=== PATIENT | male | born 1970 | race Caucasian/White ===

== ENCOUNTER 2018-03-19 12:06 | Inpatient (IN) | payer OTHER ==
[2018-03-19 12:57] LABS: BASOPHIL # 0.1 TH/MM3 (0-0.2); BASOPHIL % 0.9 % (0.0-2.0); EOSINOPHIL % 0.3 % (0.0-4.0); HEMO FLAGS DIFF FINAL; HEMOGLOBIN 16.4 GM/DL (13.0-17.0); LYMPH % 28.5 % (9.0-44.0); MEAN CELL VOLUME 84.1 FL (80.0-100.0); MEAN CORPUSCULAR HEMOGLOBIN 29.4 PG (27.0-34.0); MEAN CORPUSCULAR HGB CONC 34.9 % (32.0-36.0); MEAN PLATELET VOLUME 7.7 FL (7.0-11.0); MONO % 6.1 % (0.0-8.0); MONOCYTE # 0.9 TH/MM3 (0-0.9); NEUT % 64.2 % (16.0-70.0); PLATELET COUNT 348 TH/MM3 (150-450); RED BLOOD COUNT 5.59 MIL/MM3 (4.50-5.90); WHITE BLOOD COUNT 14.1 TH/MM3 (4.0-11.0)
[2018-03-19 13:08] LABS: PROTHROMBIN TIME - PATIENT 10.2 SEC (9.8-11.6)
[2018-03-19 14:21] LABS: BACTERIA, URINE RARE /hpf; BILIRUBIN, URINE NEG (NEG); BLOOD, URINE TRACE (NEG); COMMENT (UR) CULT NOT INDICATED; CULTURE IF INDICATED CULT NOT INDICATED; GLUCOSE,URINE NEG (NEG); HYALINE CAST, URINE 37 /lpf (RARE); KETONE, URINE 40 mg/dL (NEG); MUCUS URINE FEW /lpf (OCC); NITRITE,URINE NEG (NEG); PH, URINE 5.5 (5.0-8.5); URINE COLOR YELLOW (YELLW/STRAW); URINE LEUKOCYTE ESTERASE NEG (NEG)
[2018-03-19 14:24] LABS: BLOOD UREA NITROGEN 14 MG/DL (7-18); CREATININE 1.05 MG/DL (0.60-1.30); GLOMERULAR FILTRATION RATE 76 ML/MIN (>89); GLUCOSE,RANDOM 81 MG/DL (74-106)
[2018-03-19 14:25] LABS: ALBUMIN 4.1 GM/DL (3.4-5.0); ALKALINE PHOSPHATASE 106 U/L (45-117); ALT (GPT) 35 U/L (12-78); AST (GOT) 41 U/L (15-37); CALCIUM 8.4 MG/DL (8.5-10.1); MAGNESIUM 2.1 MG/DL (1.5-2.5); POTASSIUM 4.6 MEQ/L (3.5-5.1); SODIUM (NA) 138 MEQ/L (136-145); TOTAL BILIRUBIN ADULT 0.6 MG/DL (0.2-1.0); TOTAL PROTEIN 9.7 GM/DL (6.4-8.2)
[2018-03-19 14:26] LABS: ALCOHOL 298 MG/DL (0-5); AMPHETAMINE, URINE NEG (NEG); ANION GAP 16 MEQ/L (5-15); BARBITURATES, URINE NEG (NEG); BENZODIAZEPINE,URINE POS (NEG); BICARBONATE 22.8 MEQ/L (21.0-32.0); CANNABINOIDS, URINE NEG (NEG); CHLORIDE 99 MEQ/L (98-107); COCAINE, URINE NEG (NEG); LIPASE 107 U/L (73-393)
[2018-03-19] MEDS: SODIUM CHLOR 0.9% 1000 ML INJ 1,000 ML IV ×2 (15:10→17:27)
[2018-03-19] MEDS: ASPIRIN 325 MG TAB PO (15:46)
[2018-03-19 16:03] LABS: CREATINE KINASE 280 U/L (39-308); TROPONIN I LESS THAN 0.02 NG/ML (0.02-0.05)
[2018-03-19 16:15] LABS: CKMB 1.5 NG/ML (0.5-3.6)
[2018-03-19 16:34] LABS: B-TYPE NATRIURETIC PEPTIDE 1 PG/ML (0-100)
[2018-03-19] MEDS ORDERED: SODIUM CHLORIDE 0.9% FLUSH 10 ML FLUSH IV FLUSH (17:00)
[2018-03-19] MEDS ORDERED: SENNOSIDES 8.6 MG TAB PO (17:00)
[2018-03-19] MEDS ORDERED: MAGNESIUM HYDROXIDE SUSP 30 ML CUP PO (17:00)
[2018-03-19] MEDS ORDERED: BISACODYL 10 MG SUPP RECTAL (17:00)
[2018-03-19] MEDS ORDERED: NALOXONE HCL 0.4 MG/ML AMP IV PUSH (17:00)
[2018-03-19] MEDS: ENOXAPARIN SODIUM 30 MG/0.3 ML SYRINGE SQ (17:27)
[2018-03-19] MEDS: LORazepam 2 MG/ML VIAL IV PUSH (17:28)
[2018-03-19] MEDS ORDERED: LORazepam 2 MG TAB PO (19:15)
[2018-03-19] MEDS ORDERED: LORazepam 2 MG/ML VIAL IV PUSH ×4 (19:15)
[2018-03-19] MEDS ORDERED: FLUMAZENIL 0.5 MG/5 ML VIAL IV PUSH (19:15)
[2018-03-19] MEDS ORDERED: HALOPERIDOL LACTATE 5 MG/ML AMP IM (19:15)
[2018-03-19] MEDS: LORazepam 1 MG TAB PO ×2 (19:24→23:47)
[2018-03-19] MEDS: THIAMINE HCL 100 MG TAB PO (19:26)
[2018-03-19] MEDS ORDERED: NITROGLYCERIN 2% OINT 1 GM PACKET TOPICAL (20:00)
[2018-03-19] MEDS: SODIUM CHLORIDE 0.9% FLUSH 10 ML FLUSH IV FLUSH (21:00)
[2018-03-19] MEDS: cloNIDine HCL 0.2 MG TAB PO (21:19)
[2018-03-19] MEDS: DOCUSATE SODIUM 50 MG/SENNA 8.6 MG TAB PO (21:20)
[2018-03-19] MEDS: LACTULOSE SYRUP 20 GM/30 ML CUP PO (23:41)
[2018-03-20 00:48] LABS: TROPONIN I LESS THAN 0.02 NG/ML (0.02-0.05)
[2018-03-20] MEDS: SODIUM CHLOR 0.9% 1000 ML INJ 1,000 ML IV ×3 (02:57→17:28)
[2018-03-20 06:07] LABS: ALBUMIN 2.9 GM/DL (3.4-5.0); ALT (GPT) 26 U/L (12-78); ANION GAP 11 MEQ/L (5-15); AST (GOT) 27 U/L (15-37); BICARBONATE 26.5 MEQ/L (21.0-32.0); BLOOD UREA NITROGEN 11 MG/DL (7-18); CALCIUM 7.9 MG/DL (8.5-10.1); CHLORIDE 99 MEQ/L (98-107); CHOLESTEROL 179 MG/DL (120-200); CREATININE 0.82 MG/DL (0.60-1.30); GLOMERULAR FILTRATION RATE 101 ML/MIN (>89); GLUCOSE,RANDOM 116 MG/DL (74-106); POTASSIUM 3.7 MEQ/L (3.5-5.1); SODIUM (NA) 136 MEQ/L (136-145); TRIGLYCERIDES 156 MG/DL (42-150)
[2018-03-20 06:10] LABS: ALKALINE PHOSPHATASE 84 U/L (45-117); CHOLESTEROL/ HDL RATIO 5.24 RATIO; HDL CHOLESTEROL 34.1 MG/DL (40.0-60.0); LDL CHOLESTEROL 114 MG/DL (0-99); TOTAL BILIRUBIN ADULT 0.6 MG/DL (0.2-1.0); TOTAL PROTEIN 7.4 GM/DL (6.4-8.2); TROPONIN I LESS THAN 0.02 NG/ML (0.02-0.05)
[2018-03-20] MEDS: cloNIDine HCL 0.2 MG TAB PO ×3 (06:15→21:17)
[2018-03-20] MEDS: SODIUM CHLORIDE 0.9% FLUSH 10 ML FLUSH IV FLUSH ×2 (08:18→21:00)
[2018-03-20] MEDS: MULTIVITAMINS/MINERALS THERAPEUTIC TAB PO (08:21)
[2018-03-20] MEDS: THIAMINE HCL 100 MG TAB PO (08:21)
[2018-03-20] MEDS: PRAVASTATIN SOD 40 MG TAB PO (08:22)
[2018-03-20] MEDS: ASPIRIN EC 81 MG TABEC PO (08:22)
[2018-03-20] MEDS: DOCUSATE SODIUM 50 MG/SENNA 8.6 MG TAB PO ×2 (08:22→21:00)
[2018-03-20] MEDS: FOLIC ACID 1 MG TAB PO (08:22)
[2018-03-20] MEDS: ACETAMINOPHEN 325 MG TAB PO ×3 (08:28→21:16)
[2018-03-20] MEDS: LORazepam 1 MG TAB PO ×3 (10:49→21:15)
[2018-03-20 12:05] LABS: BASOPHIL % 0.6 % (0.0-2.0); EOSINOPHIL # 0.1 TH/MM3 (0-0.4); EOSINOPHIL % 0.8 % (0.0-4.0); HEMO FLAGS DIFF FINAL; HEMOGLOBIN 13.5 GM/DL (13.0-17.0); LYMPH % 18.8 % (9.0-44.0); LYMPHOCYTE # 1.6 TH/MM3 (1.0-4.8); MEAN CELL VOLUME 84.4 FL (80.0-100.0); MEAN CORPUSCULAR HEMOGLOBIN 29.3 PG (27.0-34.0); MEAN CORPUSCULAR HGB CONC 34.8 % (32.0-36.0); MEAN PLATELET VOLUME 7.9 FL (7.0-11.0); MONO % 8.4 % (0.0-8.0); MONOCYTE # 0.7 TH/MM3 (0-0.9); NEUT % 71.4 % (16.0-70.0); PLATELET COUNT 212 TH/MM3 (150-450); RED BLOOD COUNT 4.61 MIL/MM3 (4.50-5.90); RED CELL DISTRIBUTION WIDTH 14.6 % (11.6-17.2); WHITE BLOOD COUNT 8.4 TH/MM3 (4.0-11.0)
[2018-03-20] MEDS: PANTOPRAZOLE SOD 40 MG DELAYED RELEASE TAB PO (12:37)
[2018-03-20] MEDS: REGADENOSON INJ 0.4 MG/5 ML SYR (13:19)
[2018-03-20] MEDS: ENOXAPARIN SODIUM 30 MG/0.3 ML SYRINGE SQ (16:09)
[2018-03-21] MEDS: ACETAMINOPHEN 325 MG TAB PO ×2 (03:39→09:20)
[2018-03-21] MEDS: LORazepam 1 MG TAB PO ×3 (03:39→21:17)
[2018-03-21] MEDS: cloNIDine HCL 0.2 MG TAB PO ×3 (05:28→21:08)
[2018-03-21] MEDS: SODIUM CHLOR 0.9% 1000 ML INJ 1,000 ML IV ×2 (08:57→14:15)
[2018-03-21] MEDS: SODIUM CHLORIDE 0.9% FLUSH 10 ML FLUSH IV FLUSH ×2 (09:00→21:08)
[2018-03-21] MEDS: DOCUSATE SODIUM 50 MG/SENNA 8.6 MG TAB PO ×2 (09:00→21:00)
[2018-03-21] MEDS: PRAVASTATIN SOD 40 MG TAB PO (09:20)
[2018-03-21] MEDS: THIAMINE HCL 100 MG TAB PO (09:20)
[2018-03-21] MEDS: PANTOPRAZOLE SOD 40 MG DELAYED RELEASE TAB PO (09:20)
[2018-03-21] MEDS: ASPIRIN EC 81 MG TABEC PO (09:20)
[2018-03-21] MEDS: FOLIC ACID 1 MG TAB PO (09:20)
[2018-03-21] MEDS: MULTIVITAMINS/MINERALS THERAPEUTIC TAB PO (09:21)
[2018-03-21] MEDS ORDERED: AMOXICILLIN/CLAVULANATE K 500 MG TAB PO (14:00)
[2018-03-21] MEDS: AMOXICILLIN/CLAVULANATE K 875 MG TAB PO ×2 (14:11→21:07)
[2018-03-21] MEDS: IBUPROFEN 600 MG TAB PO (14:12)
[2018-03-21] MEDS: COLLAGENASE OINT 30 GM TUBE TOPICAL (17:31)
[2018-03-21] MEDS: ENOXAPARIN SODIUM 30 MG/0.3 ML SYRINGE SQ (17:32)
[2018-03-21] MEDS: LACTOBACILLUS ACIDOPHILUS 1 GM PACKET PO ×2 (17:32→21:07)
[2018-03-22] MEDS: LORazepam 1 MG TAB PO (01:27)
[2018-03-22] MEDS: SODIUM CHLOR 0.9% 1000 ML INJ 1,000 ML IV (05:09)
[2018-03-22] MEDS: cloNIDine HCL 0.2 MG TAB PO ×2 (05:09→13:41)
[2018-03-22] MEDS: DOCUSATE SODIUM 50 MG/SENNA 8.6 MG TAB PO (09:00)
[2018-03-22] MEDS: SODIUM CHLORIDE 0.9% FLUSH 10 ML FLUSH IV FLUSH (09:00)
[2018-03-22] MEDS: LACTOBACILLUS ACIDOPHILUS 1 GM PACKET PO ×2 (09:28→13:00)
[2018-03-22] MEDS: FOLIC ACID 1 MG TAB PO (09:29)
[2018-03-22] MEDS: MULTIVITAMINS/MINERALS THERAPEUTIC TAB PO (09:29)
[2018-03-22] MEDS: PRAVASTATIN SOD 40 MG TAB PO (09:29)
[2018-03-22] MEDS: PANTOPRAZOLE SOD 40 MG DELAYED RELEASE TAB PO (09:29)
[2018-03-22] MEDS: AMOXICILLIN/CLAVULANATE K 875 MG TAB PO (09:30)
[2018-03-22] MEDS: THIAMINE HCL 100 MG TAB PO (09:30)
[2018-03-22] MEDS: ASPIRIN EC 81 MG TABEC PO (09:30)
[2018-03-22] MEDS: ACETAMINOPHEN 325 MG TAB PO (09:30)
[2018-03-22] MEDS: COLLAGENASE OINT 30 GM TUBE TOPICAL (09:31)
[2018-03-22] MEDS: NAPROXEN SODIUM 550 MG TAB PO (11:39)
== END 2018-03-22 14:58 | disposition home or self-care (01) | DRG 392 ==
LOC: NEPC 12:06 → NEDA 17:00 → N04A 20:37
DX: K21.9 Gastro-esophageal reflux disease without esophagitis (principal); L97.529 Non-pressure chronic ulcer of other part of left foot with unspecified severity; I10 Essential (primary) hypertension; J98.11 Atelectasis; F10.229 Alcohol dependence with intoxication, unspecified; E78.5 Hyperlipidemia, unspecified; F41.9 Anxiety disorder, unspecified; F32.9 Major depressive disorder, single episode, unspecified; M06.9 Rheumatoid arthritis, unspecified; J32.9 Chronic sinusitis, unspecified; Y90.8 Blood alcohol level of 240 mg/100 ml or more; R25.1 Tremor, unspecified; Z72.0 Tobacco use
CPT/HCPCS: 70450; 71045; 78452; 80053; 80061; 80307; 81001; 82550; 82552; 82948; 83690; 83735; 83880; 84484; 85025; 85610; 85730; 93005; 93017; 96360; 99285-25